=== PATIENT | female | born 1925 | race Caucasian/White ===

== ENCOUNTER 2016-12-11 19:23 | Emergency (ER) | payer OTHER ==
--- NOTE | 2016-12-11 20:19 | DIAGNOSTIC IMAGING REPORT ---
PROCEDURE: XR KNEE 4 VIEWS - RIGHT INDICATION: TRAUMA/INJURY TECHNIQUE: Four views. COMPARISON: None. FINDINGS: Chondrocalcinosis of the medial and lateral menisci. Mild degenerative changes and joint space narrowing of the lateral compartment and right patellofemoral joint. Medial compartment is normal. No evidence of fracture or effusion. IMPRESSION: 1. Mild degenerative changes of the right knee (lateral compartment and right patellofemoral joint). 2. 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 Calcium pyrophosphate deposition disease (e.g., pseudogout) might also be considered.
--- NOTE | 2016-12-11 20:37 | ED CLINICAL REPORT ---
Clinical Report - Physicians/Mid Levels [facility] [address] [place] [address] 12/11/2016 19:25 Patient: SHERI CLAY Time Seen: 1954 PM. Arrived- By ambulance. Historian- patient. HISTORY OF PRESENT ILLNESS Chief Complaint: Injury to right knee. The injury happened just prior to arrival. Fell and landed on a carpeted surface ("knee gave out". Has a painful varicose vein that seems to be related). Occurred at home. Patient is experiencing moderate pain. No other injury. REVIEW OF SYSTEMS The patient complains of pain on weight bearing. No swelling, weakness, suspected foreign body or skin laceration. PAST HISTORY See nurses notes. The patient has had a prior injury to the same area. SOCIAL HISTORY Never smoker. No alcohol use or drug use. ADDITIONAL NOTES The nursing notes have been reviewed. PHYSICAL EXAM Vital Signs: 12/11/2016 19:28 BP: 129/51. HR: 72. RR: 20. O2 saturation: 97%. Temp: 98.1 F. Pain level now: 8/10. Have been reviewed and appear to be correct. Appearance: Alert. Oriented X3. No acute distress. Head: Head atraumatic. Eyes: Pupils equal, round and reactive to light. Eyes normal inspection. Neck: Neck supple. CVS: Normal heart rate and rhythm. Respiratory: No respiratory distress. Skin: Skin warm and dry. Normal skin color. Normal skin turgor. Extremities: No signs of infection involving the lower extremities. Right knee: moderate tenderness. Neurovascular intact distally. (tender popliteal and over varicose vein lateral-posterior to knee. No red/warmth). No joint effusion. No erythema, swelling, laceration, abrasion or ecchymosis. No puncture wound, foreign body or deformity. No limitation in ROM. Extremities otherwise negative. Neuro, Vascular and Tendons: Vascular status intact. Sensation intact. Motor intact. Gait: Gait not tested due to pain. Neuro: Oriented X 3. LABS, X-RAYS, AND EKG X-Rays: Right knee. Rt Knee X-ray: No fracture. Degenerative joint disease. (reviewed w/ ERMD Dr Parker). PROGRESS AND PROCEDURES Course of Care: Roadtested with walker-no problems Do not suspect fracture or DVT Appropriate for outpatient followup/ rehab facility at discretion of her provider. Patient is stable. Patient and family counseled in person regarding the patient's condition, test results, diagnosis and need for follow-up. Disposition: Discharged. Condition: stable. CLINICAL IMPRESSION Chronic moderate right knee joint instability. Fall. (Painful varicose vein, RLE). INSTRUCTIONS (Use your walker (!). Xrays indicate arthritis, but no fracture. Call your PCP in the morning and ask about arranging direct admit to rehab for the knee instability/ frequent falls.). Warnings: GENERAL WARNINGS: Return or contact your physician immediately if your condition worsens or changes unexpectedly, if not improving as expected, or if other problems arise. Follow-up: Follow up with your doctor. Call for the next available appointment. Understanding of the discharge instructions verbalized. (Electronically signed by Sybil Bess A.R.N.P. 12/11/2016 20:59)
--- NOTE | 2016-12-11 20:37 | ED ORDER SUMMARY ---
..... Patient: SHERI CLAY OrderSheet [facility] VisitID: [id number] [place] [address] 89y, F Registration Date/Time: 12/11/2016 ORDER SHEET Weight: 72.5 kg (stated) Allergies: No Known Drug Allergy GENERAL ORDERS: Knee 3V Right (GLF) Urgent (19:51 12/11/2016 SThom A.R.N.P.) (Cancelled: Other19:53 AMcQuoid ER Tech1) Knee 4V Right Urgent (19:53 12/11/2016 AMcQuoid ER Tech1 per protocol) (Ack 19:53 AMcQuoid ER Tech1) (20:02 HSoule) -- (Road test) (20:18 12/11/2016 SThom A.R.N.P.) (Ack 20:25 HSoule) (20:38 HSoule) - (20:19 12/11/2016 SThom A.R.N.P.) (20:27 HSoule) MEDICATION ORDERS: IV FLUIDS: ORDER SHEET NOTES: [Electronically signed by Sybil Bess A.R.N.P. (20:59 12/11/2016)] [Electronically signed by Sophie Botello (00:40 12/12/2016)] [Electronically locked/signed by Sophie Botello (00:40 12/12/2016)]
--- NOTE | 2016-12-11 20:37 | ED NURSING NOTES ---
Clinical Report - Nurses [facility] [address] [place] [address] 12/11/2016 19:25 Patient: SHERI CLAY TRIAGE Triage time 19:28 Dec 11 2016. Acuity: LEVEL 3. Chief Complaint: FALL while walking, onto a carpeted surface and landed on their knees. SEPSIS SCREEN: Sepsis Screen: negative. Negative (no infection suspected/documented). DANIAL COMA SCORE: Danial Coma Scale: 15- eyes open spontaneously (4); best verbal response- oriented x 4 (5); best motor response- obeys commands (6). --19:32 Sophie Botello 19:28 12/11/16. BP: 129/51. HR: 72. RR: 20. O2 saturation: 97% on room air. Temp: 98.1 F (oral). Pain level now: 03/02. --19:32 Sophie Botello. Weight: 72.5 kg stated. Height/Length: 58 inches Per Patient. BMI: 33.4. --19:30 Sophie Botello. Medications Calcium with D. --00:40 Sophie Botello Plavix Oral 75 mg, daily. Premarin Oral 0.625 mg, M,W,F. Simvastatin Oral 37.5 mg, daily. --00:40 Sophie Botello The following entry was struck by Sophie Botello, 00:39 (12/12/16) Reason - other. <<STRICKEN ENTRY-- None. --00:36 Sophie Botello --END STRIKE>>. Medication/allergy information source: the patient and EMS. --19:32 Sophie Botello. Allergies No Known Drug Allergy. --00:39 Sohpie Botello. History Arrived by EMS. Historian: EMS and patient. Accompanied by family. Primary physician (makenzie enriquez). Location of injuries: right knee. This occurred just prior to arrival. Occurred at home. ( Patient was walking when she felt pain in the back of her right knee which brought her to the ground . She states that this has happened before and she was told it was vericose veins. She denies any injuries to other areas of her body.). No loss of consciousness. No neck pain. Treatment SURVEY OPERATIONS DIRECTOR: See EMS report. EMS treatment SURVEY OPERATIONS DIRECTOR verbally communicated and report reviewed. See report. BP: 130 / 98. HR: 80. O2 saturation: 98 %. Trauma activation: Pre-hospital notification of patient arrival was received. PAST MEDICAL HX: Immunizations: up-to-date. The patient is post-menopausal. SOCIAL HX: Never smoker. No alcohol use or drug use. No infectious disease exposure. ABUSE ASSESSMENT: No report of abuse. NUTRITIONAL RISK ASSESSMENT: The nutritional risk assessment revealed no deficiencies. FUNCTIONAL ASSESSMENT: Functional assessment: no impairments noted. LEARNING NEEDS ASSESSMENT: The learning needs assessment revealed no barriers. FALL RISK ASSESSMENT: Fall risk assessment completed. Risk factors identified include patient medications, age greater than 65 years, history of fall and impairment of mobility. Fall interventions initiated. Patient placed on stretcher. Side rails up x2. Brakes on Bed in low position. Patient visible from nurses' station. Call light in reach of patient. Instructed not to get up without assistance. SKIN INTEGRITY ASSESSMENT: Skin integrity risk assessment completed. No skin integrity risk identified. --19:32 Sophie Botello. Interventions ID band on patient. To treatment room. --19:32 Sophie Botello. PHYSICAL ASSESSMENT To room via stretcher. GENERAL / NEURO / PSYCH: Alert. Oriented X 4. Appears in no acute distress. RESPIRATORY: Respirations not labored. CVS: Normal heart rate and rhythm. GI / : Abdomen soft and nontender. EXTREMITIES: Bilateral 2+ pitting edema of the lower extremities involving both ankles and both lower legs. Right knee: tenderness. Limited ROM secondary to pain. SKIN: Skin is warm and dry. --19:33 Sophie Botello. NURSING PROGRESS NOTES 19:34 12/11/16. Extremity elevated. Patient gowned. Reassurance given to the patient. Two patient identifiers checked. Call light placed in reach. Side rails up x 1. Bed placed in lowest position. Brakes of bed on. Patient ready for evaluation- chart flagged and ED physician notified. --19:34 Sophie Botello ( Radiology at bedside). --20:02 Sophie Botello ( Patient ambulated to restroom with walker and was steady on her feet. She reports mild pain in her leg but states she feels better than when she came.). --20:38 Sophie Botello. DISPOSITION / DISCHARGE 20:44 12/11/16. Condition at departure: stable. The goals identified in the patient's plan of care were met. No learning barriers present. Discharge instructions provided and reviewed with the patient and family. Family verbalized understanding. Written instructions provided in Maori. ( Use your walker when ambulating at home. See your PCP for next available appointment to arrange assisted living as discussed with family and patient. Take anti-inflammatories as needed. Moist heat or ice may be helpful in relieving some discomfort. Patient and family verbalized understanding and had no additional questions at this time.). The patient was discharged by the physician. She was discharged home and accompanied by family. She left the Emergency Department in a wheelchair and via private vehicle. Family member driving. --00:39 Sophie Botello 20:44 12/11/16. BP: 126/53. HR: 82. RR: 20. O2 saturation: 95% on room air. Temp: deferred. Pain level now: 10/31. --00:39 Sophie Botello. Locked/Released at 12/12/2016 0:40 by Sophie Botello,
--- NOTE | 2016-12-11 20:37 | ED ORDER SUMMARY ---
..... Patient: SHERI CLAY OrderSheet [facility] VisitID: [id number] [place] [address] 89y, F Registration Date/Time: 12/11/2016 ORDER SHEET Weight: 72.5 kg (stated) Allergies: No Known Drug Allergy GENERAL ORDERS: Knee 3V Right (GLF) Urgent (19:51 12/11/2016 SThom A.R.N.P.) (Cancelled: Other19:53 AMcQuoid ER Tech1) Knee 4V Right Urgent (19:53 12/11/2016 AMcQuoid ER Tech1 per protocol) (Ack 19:53 AMcQuoid ER Tech1) (20:02 HSoule) -- (Road test) (20:18 12/11/2016 SThom A.R.N.P.) (Ack 20:25 HSoule) (20:38 HSoule) - (20:19 12/11/2016 SThom A.R.N.P.) (20:27 HSoule) MEDICATION ORDERS: IV FLUIDS: ORDER SHEET NOTES: [Electronically signed by Sybil Bess A.R.N.P. (20:59 12/11/2016)] [Electronically signed by Sophie Botello (00:40 12/12/2016)] [Electronically locked/signed by Sophie Botello (00:40 12/12/2016)]
--- NOTE | 2016-12-11 20:37 | ED CLINICAL REPORT ---
Clinical Report - Physicians/Mid Levels [facility] [address] [place] [address] 12/11/2016 19:25 Patient: SHERI CLAY Time Seen: 1954 PM. Arrived- By ambulance. Historian- patient. HISTORY OF PRESENT ILLNESS Chief Complaint: Injury to right knee. The injury happened just prior to arrival. Fell and landed on a carpeted surface ("knee gave out". Has a painful varicose vein that seems to be related). Occurred at home. Patient is experiencing moderate pain. No other injury. REVIEW OF SYSTEMS The patient complains of pain on weight bearing. No swelling, weakness, suspected foreign body or skin laceration. PAST HISTORY See nurses notes. The patient has had a prior injury to the same area. SOCIAL HISTORY Never smoker. No alcohol use or drug use. ADDITIONAL NOTES The nursing notes have been reviewed. PHYSICAL EXAM Vital Signs: 12/11/2016 19:28 BP: 129/51. HR: 72. RR: 20. O2 saturation: 97%. Temp: 98.1 F. Pain level now: 8/10. Have been reviewed and appear to be correct. Appearance: Alert. Oriented X3. No acute distress. Head: Head atraumatic. Eyes: Pupils equal, round and reactive to light. Eyes normal inspection. Neck: Neck supple. CVS: Normal heart rate and rhythm. Respiratory: No respiratory distress. Skin: Skin warm and dry. Normal skin color. Normal skin turgor. Extremities: No signs of infection involving the lower extremities. Right knee: moderate tenderness. Neurovascular intact distally. (tender popliteal and over varicose vein lateral-posterior to knee. No red/warmth). No joint effusion. No erythema, swelling, laceration, abrasion or ecchymosis. No puncture wound, foreign body or deformity. No limitation in ROM. Extremities otherwise negative. Neuro, Vascular and Tendons: Vascular status intact. Sensation intact. Motor intact. Gait: Gait not tested due to pain. Neuro: Oriented X 3. LABS, X-RAYS, AND EKG X-Rays: Right knee. Rt Knee X-ray: No fracture. Degenerative joint disease. (reviewed w/ ERMD Dr Parker). PROGRESS AND PROCEDURES Course of Care: Roadtested with walker-no problems Do not suspect fracture or DVT Appropriate for outpatient followup/ rehab facility at discretion of her provider. Patient is stable. Patient and family counseled in person regarding the patient's condition, test results, diagnosis and need for follow-up. Disposition: Discharged. Condition: stable. CLINICAL IMPRESSION Chronic moderate right knee joint instability. Fall. (Painful varicose vein, RLE). INSTRUCTIONS (Use your walker (!). Xrays indicate arthritis, but no fracture. Call your PCP in the morning and ask about arranging direct admit to rehab for the knee instability/ frequent falls.). Warnings: GENERAL WARNINGS: Return or contact your physician immediately if your condition worsens or changes unexpectedly, if not improving as expected, or if other problems arise. Follow-up: Follow up with your doctor. Call for the next available appointment. Understanding of the discharge instructions verbalized. (Electronically signed by Sybil Bess A.R.N.P. 12/11/2016 20:59)
--- NOTE | 2016-12-11 20:37 | ED NURSING NOTES ---
Clinical Report - Nurses [facility] [address] [place] [address] 12/11/2016 19:25 Patient: SHERI CLAY TRIAGE Triage time 19:28 Dec 11 2016. Acuity: LEVEL 3. Chief Complaint: FALL while walking, onto a carpeted surface and landed on their knees. SEPSIS SCREEN: Sepsis Screen: negative. Negative (no infection suspected/documented). DANIAL COMA SCORE: Danial Coma Scale: 15- eyes open spontaneously (4); best verbal response- oriented x 4 (5); best motor response- obeys commands (6). --19:32 Sophie Botello 19:28 12/11/16. BP: 129/51. HR: 72. RR: 20. O2 saturation: 97% on room air. Temp: 98.1 F (oral). Pain level now: 03/02. --19:32 Sophie Botello. Weight: 72.5 kg stated. Height/Length: 58 inches Per Patient. BMI: 33.4. --19:30 Sophie Botello. Medications Calcium with D. --00:40 Sophie Botello Plavix Oral 75 mg, daily. Premarin Oral 0.625 mg, M,W,F. Simvastatin Oral 37.5 mg, daily. --00:40 Sophie Botello The following entry was struck by Sophie Botello, 00:39 (12/12/16) Reason - other. <<STRICKEN ENTRY-- None. --00:36 Sohpie Botello --END STRIKE>>. Medication/allergy information source: the patient and EMS. --19:32 Sophie Botello. Allergies No Known Drug Allergy. --00:39 Sophie Botello. History Arrived by EMS. Historian: EMS and patient. Accompanied by family. Primary physician (makenzie enriquez). Location of injuries: right knee. This occurred just prior to arrival. Occurred at home. ( Patient was walking when she felt pain in the back of her right knee which brought her to the ground . She states that this has happened before and she was told it was vericose veins. She denies any injuries to other areas of her body.). No loss of consciousness. No neck pain. Treatment DIRECTOR EPIDEMIOLOGY: See EMS report. EMS treatment DIRECTOR EPIDEMIOLOGY verbally communicated and report reviewed. See report. BP: 130 / 98. HR: 80. O2 saturation: 98 %. Trauma activation: Pre-hospital notification of patient arrival was received. PAST MEDICAL HX: Immunizations: up-to-date. The patient is post-menopausal. SOCIAL HX: Never smoker. No alcohol use or drug use. No infectious disease exposure. ABUSE ASSESSMENT: No report of abuse. NUTRITIONAL RISK ASSESSMENT: The nutritional risk assessment revealed no deficiencies. FUNCTIONAL ASSESSMENT: Functional assessment: no impairments noted. LEARNING NEEDS ASSESSMENT: The learning needs assessment revealed no barriers. FALL RISK ASSESSMENT: Fall risk assessment completed. Risk factors identified include patient medications, age greater than 65 years, history of fall and impairment of mobility. Fall interventions initiated. Patient placed on stretcher. Side rails up x2. Brakes on Bed in low position. Patient visible from nurses' station. Call light in reach of patient. Instructed not to get up without assistance. SKIN INTEGRITY ASSESSMENT: Skin integrity risk assessment completed. No skin integrity risk identified. --19:32 Sophie Botello. Interventions ID band on patient. To treatment room. --19:32 Sophie Botello. PHYSICAL ASSESSMENT To room via stretcher. GENERAL / NEURO / PSYCH: Alert. Oriented X 4. Appears in no acute distress. RESPIRATORY: Respirations not labored. CVS: Normal heart rate and rhythm. GI / : Abdomen soft and nontender. EXTREMITIES: Bilateral 2+ pitting edema of the lower extremities involving both ankles and both lower legs. Right knee: tenderness. Limited ROM secondary to pain. SKIN: Skin is warm and dry. --19:33 Sophie Botello. NURSING PROGRESS NOTES 19:34 12/11/16. Extremity elevated. Patient gowned. Reassurance given to the patient. Two patient identifiers checked. Call light placed in reach. Side rails up x 1. Bed placed in lowest position. Brakes of bed on. Patient ready for evaluation- chart flagged and ED physician notified. --19:34 Sophie Botello ( Radiology at bedside). --20:02 Sophie Botello ( Patient ambulated to restroom with walker and was steady on her feet. She reports mild pain in her leg but states she feels better than when she came.). --20:38 Sophie Botello. DISPOSITION / DISCHARGE 20:44 12/11/16. Condition at departure: stable. The goals identified in the patient's plan of care were met. No learning barriers present. Discharge instructions provided and reviewed with the patient and family. Family verbalized understanding. Written instructions provided in French. ( Use your walker when ambulating at home. See your PCP for next available appointment to arrange assisted living as discussed with family and patient. Take anti-inflammatories as needed. Moist heat or ice may be helpful in relieving some discomfort. Patient and family verbalized understanding and had no additional questions at this time.). The patient was discharged by the physician. She was discharged home and accompanied by family. She left the Emergency Department in a wheelchair and via private vehicle. Family member driving. --00:39 Sophie Botello 20:44 12/11/16. BP: 126/53. HR: 82. RR: 20. O2 saturation: 95% on room air. Temp: deferred. Pain level now: 10/31. --00:39 Sophie Botello. Locked/Released at 12/12/2016 0:40 by Sophie Botello,
--- NOTE | 2016-12-12 00:41 | ED MED RECONCILIATION SUMMARY ---
Patient: SHERI CLAY Medication Reconciliation Report [facility] VisitID: [id number] [address] [place] [address] 89y, F Registration Date/Time: 12/11/2016 Weight: 72.5 kg Height/Length: 58 in. BMI: 33.4 ALLERGIES: No Known Drug Allergy The patient's Home Medications are listed below: THE FOLLOWING MEDICATIONS NEED TO BE RECONCILED: Calcium with D Plavix Oral 75 mg, daily Premarin Oral 0.625 mg, M,W,F Simvastatin Oral 37.5 mg, daily The source(s) of the original Home Medication information: EMS patient The following Medications were given to the patient in the Emergency Department: None. The following Medications were prescribed to the patient: None.
--- NOTE | 2016-12-12 00:41 | ED DISCHARGE INSTRUCTIONS ---
Patient: SHERI CLAY General Instructions [facility] VisitID: [id number] [place] [address] 89y, F Registration Date/Time: 12/11/2016 Chronic moderate right knee joint instability. Fall. (Painful varicose vein, RLE). INSTRUCTIONS (Use your walker (!). Xrays indicate arthritis, but no fracture. Call your PCP in the morning and ask about arranging direct admit to rehab for the knee instability/ frequent falls.). Warnings: GENERAL WARNINGS: Return or contact your physician immediately if your condition worsens or changes unexpectedly, if not improving as expected, or if other problems arise. Follow-up: Follow up with your doctor. Call for the next available appointment. Understanding of the discharge instructions verbalized. ADDITIONAL INFORMATION Mechanical Fall You have had a fall today. It appears that the cause is mechanical. That means that you slipped, tripped or lost your balance. If your fall had been due to fainting or a seizure, further tests would be required. Home Care: Rest today and resume your normal activities when you are feeling back to normal. If you were injured during the fall, follow the advice from your doctor regarding care of your injury. You may use acetaminophen (Tylenol) or ibuprofen (Motrin, Advil) to control pain, unless another pain medicine was prescribed. [NOTE: If you have chronic liver or kidney disease or ever had a stomach ulcer or GI bleeding, talk with your doctor before using these medicines.] Fall Prevention: Was there anything that caused your fall that can be fixed, removed, or replaced? Make your home safe by keeping walkways clear of objects you may trip over. Use non-slip pads under rugs. Do not walk in poorly lit areas. Do not stand on chairs or wobbly ladders. Use caution when reaching overhead or looking upward. This position can cause a loss of balance. Be sure your shoes fit properly, have non-slip bottoms and are in good condition. Be cautious when going up and down curbs, and walking on uneven sidewalks. If your balance is poor, consider using a cane or walker. Stay as active as you can. Balance, flexibility, strength, and endurance all come from exercise. They all play a role in preventing falls. Follow Up with your doctor or as advised by our staff. Get Prompt Medical Attention if any of the following occur: Repeated mechanical falls, or unexplained falls Dizziness, fainting or seizure Severe headache Chest pain or shortness of breath Palpitations (very rapid or very slow or irregular heartbeat) Blood in vomit, stools (black or red color) Weakness of an arm or leg or one side of the face Difficulty with speech or vision You have been given the following additional information: Fall, Mechanical (Electronically signed by Sybil Bess A.R.NChanoPChano 12/11/2016 20:59)
--- NOTE | 2016-12-12 00:41 | ED MAR SUMMARY ---
..... Medication Administration Record [facility] [address] [id number] Patient: SHERI CLAY Visit ID: [id number] 89y, F Weight: 72.5 kg Height/Length: 58 in BMI: 33.4 ALLERGIES: No Known Drug Allergy
--- NOTE | 2016-12-12 00:41 | ED MAR SUMMARY ---
..... Medication Administration Record [facility] [address] [place], [place] [id number] Patient: SHERI CLAY Visit ID: [id number] 89y, F Weight: 72.5 kg Height/Length: 58 in BMI: 33.4 ALLERGIES: No Known Drug Allergy
--- NOTE | 2016-12-12 00:41 | ED MED RECONCILIATION SUMMARY ---
Patient: SHERI CLAY Medication Reconciliation Report [facility] VisitID: [id number] [address] [place] [address] 89y, F Registration Date/Time: 12/11/2016 Weight: 72.5 kg Height/Length: 58 in. BMI: 33.4 ALLERGIES: No Known Drug Allergy The patient's Home Medications are listed below: THE FOLLOWING MEDICATIONS NEED TO BE RECONCILED: Calcium with D Plavix Oral 75 mg, daily Premarin Oral 0.625 mg, M,W,F Simvastatin Oral 37.5 mg, daily The source(s) of the original Home Medication information: EMS patient The following Medications were given to the patient in the Emergency Department: None. The following Medications were prescribed to the patient: None.
== END 2016-12-11 20:44 | disposition home or self-care (01) ==
LOC: ED SRH 19:23
DX: M23.51 Chronic instability of knee, right knee (principal); I83.811 Varicose veins of right lower extremity with pain; W19.XXXA Unspecified fall, initial encounter; Y93.9 Activity, unspecified; Y92.009 Unspecified place in unspecified non-institutional (private) residence as the place of occurrence of the external cause; Y99.9 Unspecified external cause status